=== PATIENT | female | born 1985 | race Asian ===

== ENCOUNTER 2019-10-26 11:35 | Observation (INO) | payer SELFPAY ==
[~2019-10-26] VITALS: Ht 157.5 cm; Wt 54.0 kg
[2019-10-26] MEDS ORDERED: [UNRECOGNIZED DRUG - CODE] (12:03)
[2019-10-26] MEDS ORDERED: LAMI100T4 PO (12:03)
[2019-10-26] MEDS ORDERED: TENO300T5 PO (12:03)
--- NOTE | 2019-10-26 12:07 | NUR ---
PT TO US. PT C/O LOWER ABD PAIN WITH MULTIPLE EPISODES OF N/V SINCE 9 AM TODAY. PT REPORTS LMP WAS 09/07/19 WITH HX OF A REVERSAL OF HER TUBAL LIGATION.
[2019-10-26 12:19] LABS: BASOPHILS # (AUTO) 0.04 x10^3/uL (0-0.1); BASOPHILS % (AUTO) 0 % (0-1); EOSINOPHILS # (AUTO) 0.01 x10^3/uL (0-0.4); EOSINOPHILS % (AUTO) 0 % (1-7); LYMPHOCYTES # (AUTO) 2.52 x10^3/uL (1-3.4); LYMPHOCYTES % (AUTO) 17 % (22-44); MD NO; MEAN CORPUSCULAR HEMOGLOBIN 28.1 pg (27.0-34.8); MEAN CORPUSCULAR HGB CONC 32.3 g/dL (32.4-35.8); MEAN CORPUSCULAR VOLUME 87.2 fL (80-100); MEAN PLATELET VOLUME 9.4 fL (7.4-10.4); MONOCYTES # (AUTO) 0.45 x10^3/uL (0.2-0.8); MONOCYTES % (AUTO) 3 % (2-9); NEUTROPHILS % (AUTO) 80 % (42-75); PLATELET COUNT 209 x10^3/uL (130-400); RED BLOOD COUNT 4.32 x10^6/uL (3.82-5.3); RED CELL DISTRIBUTION WIDTH 14.3 % (9.6-15.2)
[2019-10-26 12:30] LABS: ALANINE AMINOTRANSFERASE 23 U/L (12-78); ALBUMIN 3.4 g/dL (3.4-5.0); ANION GAP 8 mmol/L (5-15); CHLORIDE 109 mmol/L (98-107)
[2019-10-26 12:48] LABS: ALKALINE PHOSPHATASE 57 U/L (45-117); BILIRUBIN,TOTAL 0.1 mg/dL (0.2-1.0)
--- NOTE | 2019-10-26 13:09 | NUR ---
PT ATTMEPTED TO USE RESTROOM WHILE IN US BUT BECAME LIGHTHEADED WHEN STANDING AND WAS NOT ABLE TO VOID. STRAIGHT CATH DONE BY CHARLEEN Mack RN. OK PER DR. CHUNG.
[2019-10-26 13:24] LABS: MICROSCOPIC NOT IND
--- NOTE | 2019-10-26 13:24 | NUR ---
LITER BOLUS STARTED AFTER BP WAS 78/49. US SHOWS ECTOPIC . Addendum: 10/26/19 at 1329 by ALEGLISE US MAY INDICATE ECTOPIC BUT NOT DEFINITIVELY. WAITING ON [facility] [facility].
[2019-10-26] MEDS ORDERED: SODIUM CHLORIDE 0.9% 1,000ML IVBOLUS ONE ×2 (13:30→15:00)
[2019-10-26] MEDS ORDERED: SODIUM CHLORIDE FLUSH 10ML SYR IVF ONE (13:30)
[2019-10-26] MEDS ORDERED: HYDROmorphone 1 MG/ML, 1ML INJ IVPush PRN ×2 (14:00→17:30)
[2019-10-26] MEDS ORDERED: ONDANSETRON 2MG/ML, 2ML IVPush ONE (14:00)
--- NOTE | 2019-10-26 14:00 | NUR ---
VÍCTOR ELIAS AT BED FOR RECHECK.
[2019-10-26] MEDS ORDERED: ONDANSETRON 2MG/ML, 2ML ONE ×2 (14:16→16:31)
[2019-10-26] MEDS ORDERED: HYDROmorphone 1 MG/ML, 1ML INJ ONE (14:16)
--- NOTE | 2019-10-26 14:23 | NUR ---
DR. CHUNG AT BEDSIDE TO DO FAST US EXAM. PT MEDICATED FOR PAIN PRIOR.
[2019-10-26] MEDS ORDERED: MIDAZOLAM 1 MG/ML, 2ML ONE (14:51)
[2019-10-26] MEDS ORDERED: PROPOFOL 50 ML ONE (14:51)
[2019-10-26] MEDS ORDERED: FENTANYL PF 250 MCG/5ML ONE (14:52)
[2019-10-26] MEDS ORDERED: BUPIVACAINE/PF-EPI 0.25% 1:200K ONE (14:58)
[2019-10-26] MEDS ORDERED: DEXAMETHASONE 4 MG/ML, 1ML ONE (16:31)
[2019-10-26] MEDS ORDERED: ROCURONIUM 10MG/ML,5ML ONE (16:31)
[2019-10-26] MEDS ORDERED: SUCCINYLCHOLINE 20 MG/ML, 10ML ONE (16:31)
[2019-10-26] MEDS ORDERED: BUPIVACAINE/PF-EPI 0.25% 1:200K INFIL ONE (17:12)
[2019-10-26] MEDS ORDERED: PROMETHAZINE 25 MG/ML, 1ML IVPush PRN (17:30)
[2019-10-26] MEDS ORDERED: ONDANSETRON 2MG/ML, 2ML IVPush PRN (17:30)
[2019-10-26] MEDS ORDERED: MEPERIDINE/PF 25MG/0.5ML IVPush PRN (17:30)
[2019-10-26] MEDS ORDERED: FENTANYL PF 100 MCG/2ML IV PRN (17:30)
[2019-10-26] MEDS ORDERED: EPHEDRINE 50 MG/ML, 1ML IM PRN (17:30)
[2019-10-26] MEDS ORDERED: MIDAZOLAM 1 MG/ML, 2ML IV PRN (17:30)
[2019-10-26] MEDS ORDERED: ACETAMINOPHEN 325 MG TABLET PO PRN (17:30)
[2019-10-26] MEDS ORDERED: DIPHENHYDRAMINE 50 MG/ML, 1ML IVPush PRN (17:30)
[2019-10-26] MEDS ORDERED: OXYcodone 5 MG/5 ML ORAL.SOL UDC PO PRN (17:30)
[2019-10-26] MEDS ORDERED: LACTATED RINGERS 500 ML IVBOLUS ONE (18:30)
[2019-10-26] MEDS ORDERED: morphine SULFATE 10 MG/ML, 1ML IVPush PRN (18:30)
[2019-10-26] MEDS ORDERED: OXYcodone/APAP 5/325MG TABLET PO PRN (18:30)
[2019-10-26] MEDS ORDERED: OXYcodone 5 MG/5 ML ORAL.SOL UDC ONE (18:48)
[2019-10-26 19:13] LABS: MEAN CORPUSCULAR HGB CONC 32.5 g/dL (32.4-35.8); MEAN CORPUSCULAR VOLUME 86.2 fL (80-100); MEAN PLATELET VOLUME 9.3 fL (7.4-10.4); PLATELET COUNT 145 x10^3/uL (130-400); RED BLOOD COUNT 2.82 x10^6/uL (3.82-5.3); RED CELL DISTRIBUTION WIDTH 14.4 % (9.6-15.2)
[2019-10-26 19:36] LABS: BASOPHILS # (AUTO) 0.01 x10^3/uL (0-0.1); BASOPHILS % (AUTO) 0 % (0-1); EOSINOPHILS # (AUTO) 0.08 x10^3/uL (0-0.4); EOSINOPHILS % (AUTO) 1 % (1-7); LYMPHOCYTES # (AUTO) 0.99 x10^3/uL (1-3.4); LYMPHOCYTES % (AUTO) 7 % (22-44); MD SCAN; MONOCYTES # (AUTO) 0.26 x10^3/uL (0.2-0.8); MONOCYTES % (AUTO) 2 % (2-9); NEUTROPHILS # (AUTO) 12.62 x10^3/uL (1.8-6.8); NEUTROPHILS % (AUTO) 90 % (42-75)
[2019-10-26 20:17] VITALS: BP 82/56
[2019-10-26] MEDS: IBUPROFEN 600 MG TABLET PO SCH (21:28)
[2019-10-27] VITALS (18 sets, daily range): BP systolic 71–92; BP diastolic 41–61
[2019-10-27] MEDS ORDERED: LACTATED RINGERS 1,000 ML IV SCH (00:15)
[2019-10-27 03:19] LABS: MEAN CORPUSCULAR HEMOGLOBIN 28.1 pg (27.0-34.8); MEAN CORPUSCULAR HGB CONC 32.6 g/dL (32.4-35.8); MEAN CORPUSCULAR VOLUME 86.2 fL (80-100); MEAN PLATELET VOLUME 9.3 fL (7.4-10.4); PLATELET COUNT 136 x10^3/uL (130-400)
[2019-10-27] MEDS ORDERED: ACETAMINOPHEN 325 MG TABLET PO PRN (03:30)
[2019-10-27] MEDS ORDERED: DIPHENHYDRAMINE 50 MG/ML, 1ML IVPush ONE (03:30)
[2019-10-27] MEDS ORDERED: ACETAMINOPHEN 325 MG TABLET ONE (03:40)
[2019-10-27] MEDS ORDERED: DIPHENHYDRAMINE 50 MG/ML, 1ML ONE (03:40)
[2019-10-27 04:12] LABS: BASOPHILS # (AUTO) 0.02 x10^3/uL (0-0.1); BASOPHILS % (AUTO) 0 % (0-1); EOSINOPHILS % (AUTO) 0 % (1-7); LYMPHOCYTES # (AUTO) 1.96 x10^3/uL (1-3.4); LYMPHOCYTES % (AUTO) 20 % (22-44); MD SCAN; MONOCYTES # (AUTO) 0.71 x10^3/uL (0.2-0.8); MONOCYTES % (AUTO) 7 % (2-9); NEUTROPHILS # (AUTO) 7.08 x10^3/uL (1.8-6.8); NEUTROPHILS % (AUTO) 72 % (42-75)
[2019-10-27] MEDS: IBUPROFEN 600 MG TABLET PO SCH ×2 (06:07→11:14)
[2019-10-27] MEDS ORDERED: OXYC-302 PO (10:13)
[2019-10-27] MEDS ORDERED: IBUP-1223 PO (10:14)
[2019-10-27] MEDS ORDERED: SENN-190 PO (10:15)
[2019-10-27] MEDS ORDERED: FERR325T16 PO (10:17)
[2019-10-27] MEDS ORDERED: ONDA4TAB13 SL (10:17)
== END 2019-10-27 14:28 | disposition home or self-care (01) ==
LOC: ED 12:51 → INTOOBSV 14:48 → EDIP 14:48 → 4NE 20:07
PROVIDERS: ADMIT Obstetrics & Gynecology; ATTEND Obstetrics & Gynecology
DX: O00.109 Unspecified tubal pregnancy without intrauterine pregnancy (principal); O99.89 Other specified diseases and conditions complicating pregnancy, childbirth and the puerperium; O09.521 Supervision of elderly multigravida, first trimester; O98.711 Human immunodeficiency virus [HIV] disease complicating pregnancy, first trimester; O34.81 Maternal care for other abnormalities of pelvic organs, first trimester; N80.3 Endometriosis of pelvic peritoneum; K66.1 Hemoperitoneum; Z21 Asymptomatic human immunodeficiency virus [HIV] infection status; Z3A.01 Less than 8 weeks gestation of pregnancy
CPT/HCPCS: 36415; 36430; 58660; 76801; 80053; 81003; 84702; 85014; 85018; 85025; 86850; 86900; 86923; 88305; 93005; 96374; 96375; 99291; G0378; J0330; J1100; J1170; J1200; J2250; J2405; J2704; J3010; J7030; J7120; P9016